=== PATIENT | female | born 1975 | race Hispanic/Latino ===

== ENCOUNTER → 2023-01-08 | Day surgery (SDC) | payer OTHER ==
[~2023-01-08] MED LIST: LACTATED RINGER'S 1,000 ML ONE; LIDOCAINE HCL 2% LOCAL INJ 5 ML SDV VIAL INJ ONE; MECLIZINE HCL12.5 MG PO; MIDAZOLAM HCL 2 MG/2 ML VIAL ONE; ONDANSETRON ODT4 MG PO; PROPOFOL IV EMULSION 10 MG/ML 20 ML VIAL ONE
[2023-01-08 12:40] VITALS: BP 127/79; PULSE 69; RESP 16; O2SAT 98
== END | disposition home or self-care (01) ==
LOC: OR 09:32
PROVIDERS: ATTEND Internal Medicine Gastroenterology
DX: E61.1 Iron deficiency (principal); K29.50 Unspecified chronic gastritis without bleeding; B96.81 Helicobacter pylori [H. pylori] as the cause of diseases classified elsewhere; K31.A12 Gastric intestinal metaplasia without dysplasia, involving the body (corpus); K44.9 Diaphragmatic hernia without obstruction or gangrene; K62.5 Hemorrhage of anus and rectum; K64.8 Other hemorrhoids; R03.0 Elevated blood-pressure reading, without diagnosis of hypertension; Z68.36 Body mass index [BMI] 36.0-36.9, adult
CPT/HCPCS: 43239; 88305; 88342; J2001; J2250; J2704; J7121